=== PATIENT | female | born 1965 | race Caucasian/White ===

== ENCOUNTER 2018-01-06 01:49 | Emergency (ER) | payer SELFPAY ==
[~2018-01-06] VITALS: Ht 157.5 cm; Wt 84.3 kg
[2018-01-06 05:05] VITALS: BP 129/91
[2018-01-06] MEDS ORDERED: DIPHENHYDRAMINE 50MG/ML VIAL IM ONE (05:30)
[2018-01-06] MEDS ORDERED: METHYLPREDNISOLONE SOD SUCC 125 MG/2 ML VIAL IM ONE (05:30)
== END 2018-01-06 06:02 | disposition home or self-care (01) ==
LOC: ER 04:45
DX: S90.862A Insect bite (nonvenomous), left foot, initial encounter (principal); S90.861A Insect bite (nonvenomous), right foot, initial encounter; E11.9 Type 2 diabetes mellitus without complications; L50.9 Urticaria, unspecified; W57.XXXA Bitten or stung by nonvenomous insect and other nonvenomous arthropods, initial encounter; Y93.89 Activity, other specified; Y92.89 Other specified places as the place of occurrence of the external cause; Y99.8 Other external cause status; Z88.0 Allergy status to penicillin; Z90.49 Acquired absence of other specified parts of digestive tract; Z88.6 Allergy status to analgesic agent; Z90.710 Acquired absence of both cervix and uterus; Z98.890 Other specified postprocedural states
CPT/HCPCS: 96372; 99284; J1200; J2930